=== PATIENT | female | born 1995 | race Hispanic/Latino ===

== ENCOUNTER 2019-01-15 22:16 | Emergency (ER) | payer MEDICAID, OTHER ==
[2019-01-15] MEDS ORDERED: HYDROXYZINE HCL 25 MG TABLET ONE (23:00)
== END 2019-01-15 23:55 | disposition home or self-care (01) ==
LOC: EDH 22:16
DX: F41.1 Generalized anxiety disorder (principal); R07.89 Other chest pain
CPT/HCPCS: 71046; 81025; 93005